=== PATIENT | male | born 1965 | race Caucasian/White ===

== ENCOUNTER → 2017-02-02 | Outpatient (CLI) | payer OTHER ==
[~2017-02-02] MED LIST: CARDIZEM60 MG PO; CATAPRES0.3 MG PO; COENZYME Q10200 M2 PO; ENDOCET 5-3251 EACH PO; FIBER THERAPY0.52 GM PO; IRON325 M1 PO; LIPITOR40 MG PO; LO-DOSE ASPIRIN81 M2 PO; LOVENOX100 MG/1 M SC; NORMODYNE,TRAN200 MG PO; NORVASC10 MG PO; PRADAXA150 MG PO; PROZAC20 MG PO; ZYRTEC10 M2 PO
== END | disposition home or self-care (01) ==
DX: M16.11 Unilateral primary osteoarthritis, right hip (principal); M25.551 Pain in right hip; Z74.1 Need for assistance with personal care
CPT/HCPCS: 97110 GP; 97150 GO; 97161 GP; 97165 GO

== ENCOUNTER 2017-02-22 05:32 | Inpatient (IN) | payer OTHER ==
[~2017-02-22] VITALS: Ht 190.5 cm; Wt 163.8 kg
[2017-02-22] VITALS (8 sets, daily range): BP systolic 116–174; BP diastolic 70–97
[~2017-02-22 05:32] MED LIST changes: -ENDOCET 5-3251 EACH PO
[2017-02-22 10:39] LABS: HEMATOCRIT 35.2 % (38.0-50.0); MCV 92.6 FL (86-99)
[2017-02-23 00:30] VITALS: BP 146/87
[2017-02-23 04:15] VITALS: BP 134/89
[2017-02-23 07:15] LABS: HEMATOCRIT 35.9 % (38.0-50.0)
[2017-02-23 07:40] LABS: ANION GAP 10 MEQ/L (2-14); CHLORIDE 105 MEQ/L (99-109); GFR ESTIMATE (CALCULATED) 48 mL/min/; GLUCOSE 107 mg/dL (70-99); POTASSIUM 4.4 MEQ/L (3.7-5.4); SAMPLE HEMOLYSIS CHECK 0; SAMPLE ICTERIC CHECK 0; SAMPLE LIPEMIA CHECK 0; SODIUM 139 MEQ/L (136-147); UREA NITROGEN (BUN) 26 mg/dL (9-23)
[2017-02-23 08:00] VITALS: BP 144/70
[2017-02-23 11:42] VITALS: BP 106/55
[2017-02-23 15:52] VITALS: BP 107/57
[2017-02-23 20:00] VITALS: BP 134/66
[2017-02-24 00:30] VITALS: BP 113/63
[2017-02-24 04:25] VITALS: BP 136/81
[2017-02-24 08:00] VITALS: BP 152/80
[2017-02-24] MEDS ORDERED: ENDOCET 5-3251 EACH PO (08:57)
[2017-02-24 12:11] VITALS: BP 127/58
[2017-02-24 15:57] VITALS: BP 112/56
[2017-02-24 19:50] VITALS: BP 122/78
[2017-02-25] VITALS (7 sets, daily range): BP systolic 111–157; BP diastolic 56–77
[2017-02-26 03:56] VITALS: BP 121/86
[2017-02-26 08:07] VITALS: BP 141/95
== END 2017-02-26 11:42 | DRG 470 ==
LOC: 3WEST 05:32 → 2SOUTH 05:32 → 3WEST 10:39 → 2SOUTH 15:00 → 3WEST 02-25 09:25 → 3EAST 02-25 16:00
PROVIDERS: Orthopaedic Surgery
PROC: 0SR901A Replacement of Right Hip Joint with Metal Synthetic Substitute, Uncemented, Open Approach (ICD-10-PCS; principal; 2017-02-22)
DX: M16.11 Unilateral primary osteoarthritis, right hip (principal); Z68.41 Body mass index [BMI] 40.0-44.9, adult; E66.01 Morbid (severe) obesity due to excess calories; I10 Essential (primary) hypertension; I48.91 Unspecified atrial fibrillation; G47.30 Sleep apnea, unspecified; Z87.891 Personal history of nicotine dependence
CPT/HCPCS: 36415; 71010; 80048; 85014; 85018; 86900; 86901; 86920; J0131; J0690; J1100; J2250; J2405; J3010; J7050; J7120